=== PATIENT | female | born 1995 | race Caucasian/White ===

== ENCOUNTER 2016-08-13 02:02 | Emergency (ER) | payer SELFPAY ==
[2016-08-13] MEDS ORDERED: DIPHENHYDRAMINE HCL 50 MG CAPSULE ONE (02:22)
== END 2016-08-13 02:29 | disposition home or self-care (01) ==
LOC: ED 02:02
DX: S40.862A Insect bite (nonvenomous) of left upper arm, initial encounter (principal); S40.861A Insect bite (nonvenomous) of right upper arm, initial encounter; S80.862A Insect bite (nonvenomous), left lower leg, initial encounter; S80.861A Insect bite (nonvenomous), right lower leg, initial encounter; F17.210 Nicotine dependence, cigarettes, uncomplicated; W57.XXXA Bitten or stung by nonvenomous insect and other nonvenomous arthropods, initial encounter